=== PATIENT | male | born 1985 | race Two or more races ===

== ENCOUNTER → 2020-12-17 | Day surgery (SDC) | payer BC ==
[2020-12-15 16:50] VITALS: BMI 27.0
[2020-12-17 12:34] VITALS: TEMP 98
[2020-12-17 12:39] VITALS: PULSE 62
[2020-12-17 12:56] VITALS: BP 114/77
== END | disposition home or self-care (01) ==
LOC: JASU-ENDO 04:36
PROVIDERS: ATTEND Internal Medicine Gastroenterology
PROC: 0DJD8ZZ Inspection of Lower Intestinal Tract, Via Natural or Artificial Opening Endoscopic (ICD-10-PCS; principal; 2020-12-17 12:00)
DX: Z12.11 Encounter for screening for malignant neoplasm of colon (principal); K64.8 Other hemorrhoids; Z80.0 Family history of malignant neoplasm of digestive organs